=== PATIENT | male | born 1975 | race Caucasian/White ===

== ENCOUNTER 2017-02-09 05:14 | Emergency (ER) | payer OTHER ==
[2017-02-09 05:25] VITALS: RESP 16; TEMP 97.5
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
[2017-02-09 05:53] LABS: BASO # 0.02 K/mm3 (0.0-2.0); BASO % 0.2 % (0.0-3.0); EOS # 0.3 (0.0-0.7); EOS % 2.9 % (1.5-5.0); GRAN # 3.89 (1.4-6.5); GRAN % 42.7 % (50.0-68.0); HEMATOCRIT 36.4 % (42.0-52.0); LYMPH # 4.1 (1.2-3.4); LYMPH % 44.6 % (22.0-35.0); MEAN CORPUSCULAR HEMOGLOBIN 31.5 pg (25.0-35.0); MEAN CORPUSCULAR HGB CONC 34.6 g/dl (31.0-37.0); MEAN PLATELET VOLUME 8.8 fl (7.0-11.0); MONO # 0.9 (0.1-0.6); MONO % 9.6 % (1.0-6.0); RED CELL DISTRIBUTION WIDTH 12.2 % (11.5-14.5); WHITE BLOOD COUNT 9.1 10^3/ul (4.5-11.0)
[2017-02-09 06:04] LABS: ALB/GLOB RATIO 1.5 (1.1-1.8); ALKALINE PHOSPHATASE 62 U/L (38-126); ALT/SGPT 40 U/L (7-56); AST/SGOT 38 U/L (17-59); BILIRUBIN,TOTAL 0.4 mg/dL (0.2-1.3); BLOOD UREA NITROGEN 20 mg/dL (7-21); CALCIUM 8.7 mg/dL (8.4-10.5); CARBON DIOXIDE 27 mmol/L (21-33); CHLORIDE 105 mmol/L (98-107); GFR AFRICAN-AMERICAN > 60; GLUCOSE,RANDOM 112 mg/dL (70-110); POTASSIUM 3.7 mmol/L (3.6-5.0); SODIUM 142 mmol/L (132-148); TOTAL PROTEIN 6.6 g/dL (5.8-8.3)
[2017-02-09 06:21] LABS: TROPONIN I < 0.01 ng/mL
[2017-02-09 06:46] VITALS: BP 134/76; PULSE 92; O2SAT 100
--- NOTE | 2017-02-09 09:03 | RAD ---
HISTORY: palpitations COMPARISON: No prior. FINDINGS: LUNGS: No active pulmonary disease. PLEURA: No significant pleural effusion identified, no pneumothorax apparent. CARDIOVASCULAR: Normal. OSSEOUS STRUCTURES: No significant abnormalities. VISUALIZED UPPER ABDOMEN: Normal. OTHER FINDINGS: None. IMPRESSION: No active disease.
--- NOTE | 2017-02-09 19:24 | CARD ---
APPROVED REPORT EKG Measurement Heart [id number] ND [id number] [id number] <Conclusion> Sinus tachycardia Otherwise normal ECG
== END 2017-02-09 06:46 | disposition home or self-care (01) ==
LOC: ED 05:14
DX: R00.2 Palpitations (principal)

== ENCOUNTER 2017-04-19 02:38 | Emergency (ER) | payer OTHER ==
[2017-04-19 03:14] VITALS: O2SAT 100
[2017-04-19] MEDS ORDERED: Alum-Mag Hydrox-Simethicone Susp (30 mL) PO STA (04:33)
[2017-04-19] MEDS ORDERED: Atrop/Hyosc/Scopal/PB Elixir (120 ml) PO STA (04:33)
--- NOTE | 2017-04-19 05:13 | ED PDOC ---
Arrival/HPI - General Chief Complaint: Medical Clearance Time Seen by Provider: 04/19/17 03:04 Historian: Patient - History of Present Illness Narrative History of Present Illness (Text): 04/19/17 05:13 42 year old male, whose past medical history includes anxiety, presents to the emergency department complaining of high blood pressure. Patient began experiencing left chest pain while here in the ER . Patient reports also experiencing "gassy feeling" in upper abdomen. Patient has no history of diabetes, substance abuse, GERD, smoking. Patient denies of any nausea, vomiting , calf pain or swelling, or any other complaints at this time. Also, patient mentions having taken Pepcid prior to arrival. No PMD Symptom Onset: Sudden Symptom Course: Unchanged Past Medical History - Provider Review Nursing Documentation Reviewed: Yes - Psychiatric Hx Substance Use: No Family/Social History - Physician Review Nursing Documentation Reviewed: Yes Family/Social History: No Known Family HX Smoking Status: Former Smoker Hx Alcohol Use: No Hx Substance Use: No Allergies/Home Meds Allergies/Adverse Reactions: Allergies No Known Allergies Allergy (Verified 04/19/17 03:08) Home Medications: Home Meds Medication Instructions Recorded Confirmed Esomeprazole Magnesium [Nexium] 20 mg PO DAILY 04/19/17 04/19/17 Review of Systems - Physician Review All systems were reviewed & negative as marked: Yes - Review of Systems Respiratory: absent: SOB Cardiovascular: Chest Pain (initial complaint high blood pressure, later in ER patient began experiencing left chest pain.) Gastrointestinal: Other ("gassy feeling" in upper abdomen). absent: Nausea, Vomiting Musculoskeletal: absent: Other (no calf pain or swelling) Physical Exam Vital Signs Reviewed: Yes Vital Signs Temp Pulse Resp BP Pulse Ox 04/19/17 06:39 80 18 129/78 100 04/19/17 04:39 89 18 135/85 100 04/19/17 03:09 98.5 F 98 H 20 148/88 100 Temperature: Afebrile Blood Pressure: Normal Pulse: Regular Respiratory Rate: Normal Appearance: Positive for: Well-Appearing Pain Distress: None Mental Status: Positive for: Alert and Oriented X 3, other (anxious) - Systems Exam Head: Present: Atraumatic, Normocephalic Pupils: Present: PERRL Extroacular Muscles: Present: EOMI Conjunctiva: Present: Normal Mouth: Present: Moist Mucous Membranes Neck: Present: Normal Range of Motion Respiratory/Chest: Present: Clear to Auscultation, Good Air Exchange. No: Respiratory Distress, Accessory Muscle Use Cardiovascular: Present: Regular Rate and Rhythm, Normal S1, S2. No: Murmurs Abdomen: Present: Normal Bowel Sounds. No: Tenderness, Distention, Peritoneal Signs Back: Present: Normal Inspection Upper Extremity: Present: Normal Inspection. No: Cyanosis, Edema Lower Extremity: Present: Normal Inspection. No: Edema Neurological: Present: GCS=15, CN II-XII Intact, Speech Normal Skin: Present: Warm, Dry, Normal Color. No: Rashes Psychiatric: Present: Alert, Oriented x 3, Anxious Medical Decision Making ED Course and Treatment: 04/19/17 05:16 Impression: 42 year old male with initial complaint of high blood pressure and later began experiencing left chest pain while in ER . No acute findings on physical exam aside from patient is anxious. Plan: -- EKG -- Chest X-ray -- Labs -- Maalox -- Elixir -- Ativan -- Reassess and disposition Prior Visits: Notes and results from previous visits were reviewed. Patient was last seen in the emergency department on 02/09/2017 for palpitations. Patient was d/c home. Progress Notes: EKG: Ordered, reviewed, and independently interpreted the EKG. Rate : 95 BPM Rhythm : NSR Interpretation : No ST-segment elevations or depressions, no T-wave inversions, normal intervals. Comparison : No previous EKG for comparison. Because the chest pain has been intermittent in nature we will obtain serial cardiac markers however the patient is low risk and 2 hour troponin can be drawn 04/19/17 06:36 - Lab Interpretations Lab Results: 04/19/17 05:00 04/19/17 05:00 Lab Results 04/19/17 05:00: Sodium 143, Potassium 4.8, Chloride 106, Carbon Dioxide 30, Anion Gap 11, BUN 13, Creatinine 0.9, Est GFR ( Amer) > 60, Est GFR (Non- Af Amer) > 60, Random Glucose 109, Calcium 9.7, Total Bilirubin 1.1, AST 38, ALT 43, Alkaline Phosphatase 57, Lactate Dehydrogenase 563, Total Creatine Kinase 130, Troponin I < 0.01, Total Protein 7.7, Albumin 4.5, Globulin 3.2, Albumin/Globulin Ratio 1.4, Lipase 110 04/19/17 05:00: APTT 31.2 04/19/17 05:00: WBC 8.6, RBC 4.21, Hgb 13.4 L, Hct 38.2 L, MCV 90.7, MCH 31.8, MCHC 35.1, RDW 11.9, Plt Count 249, MPV 8.8, Gran % 77.2 H, Lymph % (Auto) 17.3 L, [place] % (Auto) 5.3, Eos % (Auto) 0.1 L, Baso % (Auto) 0.1, Gran # 6.63 H, Lymph # 1.5, [place] # 0.5, Eos # 0.0, Baso # 0.01 Interpretation: All labs normal - RAD Interpretation Radiology Orders: 04/19/17 03:52 CHEST TWO VIEWS (PA/LAT) [RAD] Stat - Medication Orders Current Medication Orders: Discontinued Medications Al Hydrox/Mg Hydrox/Simethicone (Maalox Plus 30 Ml) 30 ml PO STAT STA Stop: 04/19/17 04:34 Last Admin: 04/19/17 05:15 Dose: 30 ml Belladonna/Phenobarbital ( Elixir) 5 ml PO STAT STA Stop: 04/19/17 04:34 Last Admin: 04/19/17 05:14 Dose: 5 ml Lorazepam (Ativan) 0.5 mg PO ONCE ONE PRN Reason: Protocol Stop: 04/19/17 04:33 Last Admin: 04/19/17 05:05 Dose: 0.5 mg - Scribe Statement The provider has reviewed the documentation as recorded by the Gonzalez Ron Provider Scribe Attestation: All medical record entries made by the Gonzalez were at my direction and personally dictated by me. I have reviewed the chart and agree that the record accurately reflects my personal performance of the history, physical exam, medical decision making, and the department course for this patient. I have also personally directed, reviewed, and agree with the discharge instructions and disposition. Disposition/Present on Arrival - Present on Arrival Any Indicators Present on Arrival: No History of DVT/PE: No History of Uncontrolled Diabetes: No Urinary Catheter: No History of Decub. Ulcer: No History Surgical Site Infection Following: None - Disposition Have Diagnosis and Disposition been Completed?: Yes Diagnosis: Chest pain Disposition: HOME/ ROUTINE Disposition Time: 03:00 Patient Plan: Discharge Patient Problems: Current Active Problems Problem Status Onset Chest pain Acute Condition: IMPROVED Discharge Instructions (ExitCare): Chest Pain (ED) Referrals: PCP,NO [Primary Care Provider] - Follow up with primary [facility] [Outside] - Follow up with primary Forms: [employer] (Urdu)
[2017-04-19 05:30] LABS: BASO # 0.01 K/mm3 (0.0-2.0); BASO % 0.1 % (0.0-3.0); EOS % 0.1 % (1.5-5.0); GRAN # 6.63 (1.4-6.5); GRAN % 77.2 % (50.0-68.0); HEMATOCRIT 38.2 % (42.0-52.0); LYMPH # 1.5 (1.2-3.4); LYMPH % 17.3 % (22.0-35.0); MEAN CELL VOLUME 90.7 fl (80.0-105.0); MEAN CORPUSCULAR HEMOGLOBIN 31.8 pg (25.0-35.0); MEAN CORPUSCULAR HGB CONC 35.1 g/dl (31.0-37.0); MEAN PLATELET VOLUME 8.8 fl (7.0-11.0); MONO # 0.5 (0.1-0.6); MONO % 5.3 % (1.0-6.0); RED CELL DISTRIBUTION WIDTH 11.9 % (11.5-14.5); WHITE BLOOD COUNT 8.6 10^3/ul (4.5-11.0)
[2017-04-19 05:39] LABS: ALB/GLOB RATIO 1.4 (1.1-1.8); BILIRUBIN,TOTAL 1.1 mg/dL (0.2-1.3); CALCIUM 9.7 mg/dL (8.4-10.5); GFR AFRICAN-AMERICAN > 60; GLUCOSE,RANDOM 109 mg/dL (70-110); LIPASE 110 U/L (23-300); TOTAL PROTEIN 7.7 g/dL (5.8-8.3)
[2017-04-19 05:51] LABS: TROPONIN I < 0.01 ng/mL
[2017-04-19 05:56] LABS: ALKALINE PHOSPHATASE 57 U/L (38-126); ALT/SGPT 43 U/L (7-56); AST/SGOT 38 U/L (17-59); BLOOD UREA NITROGEN 13 mg/dL (7-21); CARBON DIOXIDE 30 mmol/L (21-33); CHLORIDE 106 mmol/L (98-107); POTASSIUM 4.8 mmol/L (3.6-5.0); SODIUM 143 mmol/L (132-148)
[2017-04-19 06:54] VITALS: RESP 18
[2017-04-19 08:22] VITALS: BP 118/57; PULSE 85
[2017-04-19 08:24] VITALS: TEMP 98.7
--- NOTE | 2017-04-19 11:06 | RAD ---
HISTORY: chest pain COMPARISON: 02/09/2017 TECHNIQUE: Chest PA and lateral FINDINGS: LUNGS: No active pulmonary disease. PLEURA: No significant pleural effusion identified. No pneumothorax apparent. CARDIOVASCULAR: Normal. OSSEOUS STRUCTURES: No significant abnormalities. VISUALIZED UPPER ABDOMEN: Normal. OTHER FINDINGS: None. IMPRESSION: No active disease.
--- NOTE | 2017-04-19 23:18 | CARD ---
APPROVED REPORT EKG Measurement Heart [id number] TN [id number] [id number] <Conclusion> Normal sinus rhythm Normal ECG
== END 2017-04-19 08:24 | disposition home or self-care (01) ==
LOC: ED 02:38
DX: R07.9 Chest pain, unspecified (principal)